=== PATIENT | male | born 1975 | race Caucasian/White ===

== ENCOUNTER 2019-09-26 12:17 | Emergency (ER) | payer SELFPAY ==
[~2019-09-26] VITALS: Ht 175.3 cm; Wt 79.0 kg
[2019-09-26] MEDS ORDERED: ONDANSETRON HCL 4MG/2ML INJ IV STA (12:37)
[2019-09-26] MEDS ORDERED: KETOROLAC 30MG/ML VIAL IV STA (12:37)
[2019-09-26] MEDS ORDERED: LORAZEPAM 0.5MG TABLET PO ONE (12:45)
[2019-09-26] MEDS ORDERED: CEFTRIAXONE 1 G PREMIX 50 ML IV ONE (12:45)
[2019-09-26] MEDS ORDERED: SODIUM CHLORIDE 0.9% 1000ML BAG (SEPSIS BOLUS) IV ONE (12:45)
[2019-09-26 13:09] LABS: HEMATOCRIT. 40.8 % (42.0-52.0); HEMOGLOBIN. 14.1 g/dL (14.0-18.0); MEAN CORPUSCULAR HEMOGLOBIN 29.9 pg (28.0-32.0); MEAN CORPUSCULAR VOLUME 86.2 fL (80.0-94.0); MEAN PLATELET VOLUME 7.7 fl (7.4-10.4); PLATELET 205 x1000/uL (130-400); RED BLOOD CELL COUNT 4.73 mill/uL (4.7-6.1); RED CELL DISTRIBUTION WIDTH 13.9 % (11.6-14.6)
[2019-09-26 13:15] LABS: PROTHROMBIN TIME 10.7 sec (9.6-11.0)
[2019-09-26 13:17] LABS: CHLORIDE 104 mEq/L (98-107)
[2019-09-26 13:21] LABS: ETHANOL BLOOD < 10 mg/dL
[2019-09-26 13:26] LABS: CREATINE KINASE 127 IU/L (39-308)
[2019-09-26 13:28] LABS: CLARITY URINE CLEAR (CLEAR); COLOR URINE YELLOW (YELLOW); KETONES URINE NEGATIVE (NEGATIVE); LEUKOCYTE ESTERASE URINE NEGATIVE (NEGATIVE); NITRITE URINE NEGATIVE (NEGATIVE); OCCULT BLOOD URINE NEGATIVE (NEGATIVE); PH URINE >=9.0 (4.5-8.0); PROTEIN URINE NEGATIVE (NEGATIVE); SPECIFIC GRAVITY URINE 1.021 (1.005-1.030); UROBILINOGEN URINE 0.2 E.U./dL (0.2-1.0)
[2019-09-26 13:39] LABS: OPIATES URINE SCREEN NEGATIVE (NEGATIVE)
[2019-09-26 13:40] LABS: *BARBITURATES SCREEN URINE NEGATIVE (NEGATIVE); *COCAINE SCREEN URINE NEGATIVE (NEGATIVE)
[2019-09-26 13:42] LABS: *AMPHETAMINES SCREEN URINE NEGATIVE (NEGATIVE); *BENZODIAZEPINES SCREEN URINE NEGATIVE (NEGATIVE); CANNABINOID URINE SCREEN NEGATIVE (NEGATIVE); METHADONE URINE SCREEN NEGATIVE (NEGATIVE)
[2019-09-26 13:44] LABS: PHENCYCLIDINE URINE SCREEN NEGATIVE (NEGATIVE)
[2019-09-26 13:51] LABS: PLATELET ESTIMATE NORMAL
[2019-09-26] MEDS ORDERED: AZITHROMYCIN 500 MG TABLET PO ONE (14:00)
[2019-09-26] MEDS ORDERED: TRAMADOL 50MG TABLET PO ONE (14:15)
[2019-09-26] MEDS ORDERED: OSELTAMIVIR 75MG CAPSULE PO ONE (14:15)
[2019-09-26 14:35] VITALS: BP 146/82
[2019-09-29 04:07] LABS: NEISSERIA GONORRHOEAE NAA Negative (Negative)
== END 2019-09-26 14:56 | disposition home or self-care (01) ==
LOC: ER 12:40 → CANBEDREQ 15:46
DX: J10.1 Influenza due to other identified influenza virus with other respiratory manifestations (principal); M79.10 Myalgia, unspecified site; Z20.2 Contact with and (suspected) exposure to infections with a predominantly sexual mode of transmission; I10 Essential (primary) hypertension; F31.9 Bipolar disorder, unspecified; F41.9 Anxiety disorder, unspecified; G43.909 Migraine, unspecified, not intractable, without status migrainosus
CPT/HCPCS: 36415; 71045; 80053; 80305; 80320; 81003; 82550; 82553; 83690; 84145; 84484; 85025; 85610; 87040; 87086; 87491; 87591; 87804; 93005; 96374; 96375; 99285; J0696; J1885; J2405; J7030; G0480